=== PATIENT | male | born 1970 | race Caucasian/White ===

== ENCOUNTER 2019-02-18 17:10 | Emergency (ER) | payer OTHER ==
[2019-02-18 17:27] VITALS: BP 164/109
--- NOTE | 2019-02-18 18:12 | ED Physician Documentation ---
PD HPI UPPER EXT INJURY - Stated complaint Stated Complaint: RT THUMB LAC - Chief complaint Chief Complaint: Laceration - History obtained from History obtained from: Patient, Family - History of Present Illness Location: Right, Finger (thumb) Type of injury: Laceration Where injury occurred: Home Timing - onset: Today Timing - duration: Minutes Timing - details: Abrupt onset, Still present Worsened by: Moving, Palpating Associated symptoms: No: Weakness, Numbness, Tingling Contributing factors: No: Anticoagulated Similar symptoms before: Diagnosis (dermal avulsion) Recently seen: Not recently seen - Additonal information Additional information: Previously well 49-year-old male was using a mandolin knife and sliced off the tip of his right thumb. He has been able to control bleeding with direct pressure. Review of Systems Constitutional: denies: Fever Respiratory: denies: Dyspnea, Cough GI: denies: Vomiting Skin: reports: Laceration (s) PD PAST MEDICAL HISTORY - Past Medical History Past Medical History: No - Past Surgical History Past Surgical History: Yes HEENT: Tonsil/Adenoidectomy - Social History Does the pt smoke?: No Smoking Status: Never smoker Does the pt drink ETOH?: No Does the pt have substance abuse?: No - Immunizations Immunizations are current?: No PD ED PE NORMAL - Vitals Vital signs reviewed: Yes (hypertensive ) - General General: Alert and oriented X 3, No acute distress, Well developed/nourished - HEENT HEENT: Atraumatic, PERRL, EOMI - Neck Neck: Supple, no meningeal sign - Respiratory Respiratory: No respiratory distress - Derm Derm: Normal color, Warm and dry, No rash - Extremities Extremities: Other (There is a 1cm round skin avulsion to the radial surface of the right distal thumb. ) - Neuro Neuro: marker machine 2-12 intact, No motor deficit, No sensory deficit, Normal speech Eye Opening: Spontaneous Motor: Obeys Commands Verbal: Oriented GCS Score: 15 - Psych Psych: Normal mood, Normal affect Results - Vitals Vitals: Vital Signs - 24 hr 02/18/19 17:23 Temperature 36.7 C Heart Rate 87 Respiratory 20 Rate Blood Pressure 164/109 H O2 Saturation 97 Oxygen O2 Source Room air Procedures - Laceration (location) right thumb Length in cm: 1 Wound type: Into subcut fat, Clean Wound Preparation: Hibiclens, Irrigated copiously NS, Wound explored, To the base Skin layer closure: Dermabond, Other (with a turniqute placed) Other: Patient tolerated well, No complications, Neurovascular intact, Dressing applied, Tetanus booster given Complexity: Simple PD MEDICAL DECISION MAKING - ED course Complexity details: considered differential, d/w patient, d/w family ED course: 49-year-old male with a dermal avulsion to the right thumb has bleeding controlled with a tourniquet and Dermabond. Departure - Departure Disposition: 01 Home, Self Care Clinical Impression: Avulsion of skin of finger Qualifiers: Encounter type: initial encounter Qualified Code(s): S61.209A - Unspecified open wound of unspecified finger without damage to nail, initial encounter Condition: Stable Instructions: ED Avulsion Dermal Follow-Up: [facility] [Provider Group]
[2019-02-18] MEDS ORDERED: TETANUS/DIPHTHERIA/PERTUSSIS 0.5 ML SYRINGE IM ONE (18:13)
== END 2019-02-18 18:24 | disposition home or self-care (01) ==
LOC: ED 17:10
DX: S61.011A Laceration without foreign body of right thumb without damage to nail, initial encounter (principal); W26.0XXA Contact with knife, initial encounter; Y92.009 Unspecified place in unspecified non-institutional (private) residence as the place of occurrence of the external cause; Z23 Encounter for immunization
CPT/HCPCS: 12001; 90471

== ENCOUNTER 2019-07-06 10:46 | Emergency (ER) | payer OTHER ==
--- NOTE | 2019-07-06 10:49 | ED Physician Documentation ---
PD HPI URI - Stated complaint Stated Complaint: SORE THROAT,COUGH - History obtained from History obtained from: Patient - History of Present Illness Timing - onset: How many days ago (4) Timing duration: Days (4) Timing details: Abrupt onset, Still present Associated symptoms: Fever, Chills, Nasal congestion, Sinus pain, Sore throat, Dry cough. No: Chest pain, Dyspnea, NVD Contributing factors: No: Sick contact, Travel, Immunocompromised, COPD / asthma Similar symptoms before: Has not had sx before Recently seen: Not recently seen Review of Systems Constitutional: reports: Fever, Chills, Myalgias Nose: reports: Rhinorrhea / runny nose, Sinus pressure / pain. denies: Congestion Throat: reports: Sore throat Cardiac: denies: Chest pain / pressure, Palpitations Respiratory: reports: Cough. denies: Wheezing GI: denies: Abdominal Pain, Nausea, Vomiting, Diarrhea Skin: denies: Rash, Lesions PD PAST MEDICAL HISTORY - Past Medical History Cardiovascular: None Respiratory: None Neuro: None Endocrine/Autoimmune: None - Past Surgical History Past Surgical History: Yes HEENT: Tonsil/Adenoidectomy - Present Medications Home Medications: Ambulatory Orders Medication Instructions Recorded Confirmed Benzonatate [Tessalon Perle] 100 - 200 mg PO TID PRN #30 capsule 07/06/19 Doxycycline Monohydrate 100 mg PO BID #14 tablet 07/06/19 Hydrocodone/Acetaminophen [Morgan 1 each PO Q6H PRN #20 tablet 07/06/19 5-325 Tablet] Lidocaine Viscous 2% [Xylocaine 5 ml PO Q4H PRN #100 ml 07/06/19 Viscous 2%] Ondansetron Odt [Zofran] 4 mg TL Q6H PRN #15 tablet 07/06/19 dexAMETHasone [Decadron] 4 mg PO DAILY #5 tablet 07/06/19 - Allergies Allergies/Adverse Reactions: Allergies Allergy/AdvReac Type Severity Reaction Status Date / Time Penicillins Allergy Anaphylaxis Verified 07/06/19 10:56 - Social History Does the pt smoke?: No Smoking Status: Never smoker Does the pt drink ETOH?: No Does the pt have substance abuse?: No - Immunizations Immunizations are current?: No PD ED PE NORMAL - Vitals Vital signs reviewed: Yes - General General: Alert and oriented X 3, No acute distress, Well developed/nourished - HEENT HEENT: Ears normal, Moist mucous membranes. No: Pharynx benign (some redness but no focal swelling nor exudate. ) - Neck Neck: Supple, no meningeal sign, No adenopathy - Cardiac Cardiac: RRR, No murmur - Respiratory Respiratory: Clear bilaterally - Abdomen Abdomen: Soft, Non tender - Derm Derm: Normal color, Warm and dry - Extremities Extremities: No edema, No calf tenderness / cord - Neuro Neuro: Alert and oriented X 3, No motor deficit, Normal speech Results - Vitals Vitals: Vital Signs - 24 hr 07/06/19 07/06/19 10:51 13:02 Temperature 36.6 C Heart Rate 94 93 Respiratory 20 20 Rate Blood Pressure 191/116 H 157/110 H O2 Saturation 96 97 Oxygen O2 Source Room air - Labs Labs: Laboratory Tests 07/06/19 11:40 Group A Strep Rapid Negative - Rads (name of study) chest xray Radiology: Prelim report reviewed (small infiltrate right upper lobe. ), See rad report PD MEDICAL DECISION MAKING - ED course Complexity details: reviewed results (chest xray showing small infiltrate right upper. He also has sinusitis type symptoms. Will treat with abx though may be viral instead/as well. He had COVID testing in tent before coming into ER, so pending results. ), considered differential, d/w patient Departure - Departure Disposition: 01 Home, Self Care Clinical Impression: Upper respiratory infection Qualifiers: URI type: unspecified URI Qualified Code(s): J06.9 - Acute upper respiratory infection, unspecified Pneumonia Qualifiers: Pneumonia type: due to unspecified organism Laterality: right Lung location: upper lobe of lung Qualified Code(s): J18.9 - Pneumonia, unspecified organism Condition: Stable Record reviewed to determine appropriate education?: Yes Instructions: ED Upper Resp Infec Abx Tx, ED Pneumonia Adult Prescriptions: Benzonatate [Tessalon Perle] 100 - 200 mg PO TID PRN #30 capsule PRN Reason: Cough dexAMETHasone [Decadron] 4 mg PO DAILY #5 tablet Doxycycline Monohydrate 100 mg PO BID #14 tablet Hydrocodone/Acetaminophen [Morgan 5-325 Tablet] 1 each PO Q6H PRN #20 tablet PRN Reason: Pain Lidocaine Viscous 2% [Xylocaine Viscous 2%] 5 ml PO Q4H PRN #100 ml PRN Reason: Pain Ondansetron Odt [Zofran] 4 mg TL Q6H PRN #15 tablet PRN Reason: Nausea / Vomiting Comments: Your COVID test should result tomorrow. At this point it actually seems less likely that and would be concerning for sinus and bronchial infections. Your chest x-ray shows a small early patch of fluid in the right upper lobe suggesting early pneumonia. We would treat these as more likely bacterial at this point. Stay well-hydrated with lots of fluids. Ondansetron if needed for nausea. Tylenol or hydrocodone if needed for pains. Doxycycline antibiotic twice daily for a week for possible or presumed bacterial component. Dexamethasone steroid anti-inflammatory to help as well. Add benzonatate as needed for cough suppression. You can also use the lidocaine syrup along with some Benadryl or [id number] cough medicine to help for the sore throat. Recheck if not improved well over the next few days and return sooner if worsening. Discharge Date/Time: 07/06/19 13:04
[2019-07-06] MEDS ORDERED: diphenhydrAMINE ELIXIR 25 MG/10 ML UDC PO STA (11:31)
[2019-07-06] MEDS ORDERED: BENZONATATE 100 MG CAPSULE PO STA (11:31)
[2019-07-06] MEDS ORDERED: LIDOCAINE VISCOUS 2% 15 ML UDC MM STA (11:31)
[2019-07-06] MEDS ORDERED: ONDANSETRON ODT 4 MG TABLET TL STA (11:31)
[2019-07-06] MEDS ORDERED: HYDROcod/ACETAM 5/325 MG TABLET PO STA (11:31)
[2019-07-06 12:00] LABS: RAPID STREP SCREEN Negative (Negative)
--- NOTE | 2019-07-06 12:12 | XRAY Report ---
Reason: chest pain Procedure Date: 07/06/2019 Accession Number: [id number] / [id number] Procedure: XR - Chest 1 View X-Ray CPT Code: 28266 Final Report FULL RESULT: EXAM: CHEST RADIOGRAPHY EXAM DATE: 07/06/2019 11:49 AM. CLINICAL HISTORY: Cough, congestion, sore throat. Chest pain. COMPARISON: None. TECHNIQUE: 1 view. FINDINGS: Lungs/Pleura: Faint ill-defined right mid upper lung focal airspace opacity. No vascular congestion. No pneumothorax. Mediastinum: Heart size is normal. Aorta is mildly tortuous. Other: None. IMPRESSION: 1. Ill-defined right mid upper lung airspace opacity which can be seen with early consolidation. 2. No vascular congestion. RADIA
[2019-07-06] MEDS ORDERED: DOXYCYCLINE 100 MG TABLET PO STA (12:42)
[2019-07-06 13:04] VITALS: BP 157/110
== END 2019-07-06 13:04 | disposition home or self-care (01) ==
LOC: ED 10:46
DX: J06.9 Acute upper respiratory infection, unspecified (principal); J18.9 Pneumonia, unspecified organism
CPT/HCPCS: 71045; 87070; 87430; 99283; 99285; A9270; Q0162

== ENCOUNTER 2019-07-06 18:49 | Outpatient (CLI) | payer OTHER | END 2019-07-06 18:50 | disposition home or self-care (01) | LOC: COV 18:49 | PROVIDERS: ATTEND Family Medicine | DX: R50.9 Fever, unspecified (principal); R05 Cough; M79.10 Myalgia, unspecified site; R53.83 Other fatigue; J02.9 Acute pharyngitis, unspecified; R19.7 Diarrhea, unspecified | CPT/HCPCS: 81599 ==